=== PATIENT | female | born 1945 | race Two or more races ===

== ENCOUNTER 2017-09-30 20:03 | Emergency (ER) | payer OTHER, MEDICAID ==
[2017-09-30 20:13] VITALS: TEMP 98.2
[2017-09-30] MEDS ORDERED: LORazepam 2 MG/ML INJ IVP ONE (20:42)
--- NOTE | 2017-09-30 20:42 | EDPHY ---
General - History Smoking Status: Never smoked Time Seen by Provider: 09/30/17 20:30 Narrative: CHIEF COMPLAINT: Headache, high blood pressure, "tingling" HISTORY OF PRESENT ILLNESS: Patient complains of headache, feeling that her blood pressure was high and tingling in the extremities. Symptoms have been present for nearly 15 days. The tingling is described in the left foot and in the right knee stump over the past 2 weeks, and then began involving the hands earlier today. She has had a mild headache with this that is around her entire head. It was not sudden onset. It has been waxing and waning over the past 15 days. No neck pain or stiffness. No chest pain. No shortness of breath. No numbness. No unilateral complaints of any kind. Her family at bedside has not witnessed any slurred speech or facial droop. She has had no difficulty ambulating. She feels that this may be related to anxiety but was concerned and wanted to be evaluated due to the possibility of her blood pressure being abnormal. No other associated complaints or modifying factors. Her spouse, son and daughter are at bedside. HPI obtained using the hospital's certified Khmer world language teacher at bedside in patient's room. REVIEW OF SYSTEMS: Ten systems reviewed and are negative unless otherwise noted in the HPI PCP: Dr. Raciel Dillard SPECIALISTS: None PAST MEDICAL HISTORY: Type 2 diabetes, hypertension, anxiety PAST SURGICAL HISTORY: Right leg BKA, cholecystectomy SOCIAL HISTORY: Never smoker. No drug or alcohol use. Lives here independently with her spouse and daughter FAMILY HISTORY: Noncontributory EXAMINATION General Appearance: Alert, no distress, no facial droop. Well-developed well- nourished Head: normocephalic, atraumatic Eyes: Pupils equal and round, no conjunctival pallor or injection. EOMs intact. ENT, Mouth: Mucous membranes moist. Uvula midline. Neck: Normal inspection, supple, non-tender Respiratory: Lungs are clear to auscultation Cardiovascular: Regular rate and rhythm Gastrointestinal: Abdomen is soft and nontender Back: non-tender, no bony abnormalities Neurological: No facial droop. GCS 15. Cranial nerves 2-12 grossly intact. A &O, nonfocal, no pronator drift. Normal [id number]. NIH stroke scale 0. Skin: Warm and dry, no rash. No petechiae or purpura Extremities: Nontender, no pedal edema. Right leg status post BKA with well- appearing stump. Symmetric range of motion in the remaining joints. Psychiatric: Mood and affect normal DIFFERENTIAL DIAGNOSES: Including but not limited to TIA, CVA, anxiety, diabetes, peripheral neuropathy , paresthesia MDM: 8:40 p.m. Complaints of headache and tingling of the arms and legs over the past 15 days with 1 day of hand involvement. The patient's neuro exam is completely within normal limits. There is no signs of stroke. I do feel this is more likely related to diabetes and/or anxiety and less so from cardiac or neuro changes. She is well-appearing and her vital signs are within normal limits with very mild hypertension at check-in. Heart rate was 108. I have ordered CT scan of the head, laboratory studies and full cardiac workup although my suspicion is low for this type of etiology. She also agrees that there may be an anxiety component to this as well. 9:00 p.m. I have discussed with Dr. Howard. She will evaluate the patient as well. 9:35 p.m. Notified by radiologist Dr. Nathanael Pena. There are no acute findings. There is extensive microvascular changes. CXR has been read as borderline cardiac enlargement. 9:45 p.m. Patient re-evaluated. She is resting comfortably. Updated on the negative laboratory studies, negative chest x-ray and and nonacute appearance of the CT scan of the head. 10:40 p.m. Patient evaluated by Dr. Howard. She is in agreement with the management thus far. She reports that the patient is feeling significantly better. She feels the patient is stable for discharge home. I do agree with this. I do not suspect CVA, TIA or cardiac involvement. We discussed follow up with primary care physician for further management of the blood pressure and blood glucose levels. We discussed ED precautions and I have answered all her questions. She is discharged home stable condition. EKG interpretation: Dr. Howard SUPERVISION: Patient was evaluated and examined in conjunction with my secondary supervising physician as documented. We have both examined the patient. (Philip Claudio) PHYSICIAN DOCUMENTATION: This is a 72-year-old female with hypertension who presents with slow onset of headache as well as paresthesias of her arms. Paresthesias have been present for several days now. She has no neurologic deficit. She was evaluated with CT scan of her head which was unremarkable for any acute changes. Her labs and studies are otherwise unremarkable. I do not feel that she is suffering from a subarachnoid hemorrhage, CVA, TIA. I am comfortable discharging her home. I agree with the assessment as above. The patient was evaluated and managed by the Physician Ticket Worker. My co- signature indicates that I have reviewed this chart and I agree with the findings and plan of care as documented. I am the secondary supervising physician. (Perla Howard) - Diagnostics Imaging Results: Imaging Impressions Chest X-Ray 09/30/17 20:43 Impression: Borderline cardiac enlargement and mild peribronchial cuffing. Head CT 09/30/17 20:44 Impression: Elderly brain with atrophy and probable white matter small vessel disease. Nothing acute is identified. Results called and discussed with Philip Claudio the before meals on 09/30/2017 at 21:35 - Objective Vital Signs: Initial Vital Signs Temperature (C) 36.8 C 09/30/17 20:07 Heart Rate 108 H 09/30/17 20:07 Respiratory Rate 18 09/30/17 20:07 Blood Pressure 150/67 H 09/30/17 20:07 O2 Sat (%) 96 09/30/17 20:07 O2 Delivery Mode Room Air O2 (L/minute) 2 Allergies/Adverse Reactions: No Known Allergies Allergy (Verified 10/06/12 21:20) Home Medications: Medication Instructions Recorded metFORMIN HCL [Glucophage 1000 mg] 1,000 mg PO BIDMEAL 10/06/12 Lisinopril 04/20/16 Meclizine HCl 25 mg PO TID PRN #10 tablet 04/20/16 Levemir 09/30/17 Laboratory Results: Laboratory Results 09/30/17 20:54 09/30/17 20:54 09/30/17 09/30/17 20:54 20:54 WBC 8.84 10^3/uL 10^3/uL (3.80-9.50) RBC 3.89 10^6/uL L 10^6/uL (4.18-5.33) Hgb 11.7 g/dL L g/dL (12.6-16.3) Hct 34.2 % L % (38.0-47.0) MCV 87.9 fL fL (81.5-99.8) MCH 30.1 pg pg (27.9-34.1) MCHC 34.2 g/dL g/dL (32.4-36.7) RDW 11.8 % % (11.5-15.2) Plt Count 360 10^3/uL 10^3/uL (150-400) MPV 9.2 fL fL (8.7-11.7) Neut % (Auto) 64.4 % % (39.3-74.2) Lymph % (Auto) 26.7 % % (15.0-45.0) Young % (Auto) 6.4 % % (4.5-13.0) Eos % (Auto) 0.6 % % (0.6-7.6) Baso % (Auto) 0.7 % % (0.3-1.7) Nucleat RBC Rel Count 0.0 % % (0.0-0.2) Absolute Neuts (auto) 5.69 10^3/uL 10^3/uL (1.70-6.50) Absolute Lymphs (auto) 2.36 10^3/uL 10^3/uL (1.00-3.00) Absolute Monos (auto) 0.57 10^3/uL 10^3/uL (0.30-0.80) Absolute Eos (auto) 0.05 10^3/uL 10^3/uL (0.03-0.40) Absolute Basos (auto) 0.06 10^3/uL 10^3/uL (0.02-0.10) Absolute Nucleated RBC 0.00 10^3/uL 10^3/uL (0-0.01) Immature Gran % 1.2 % H % (0.0-1.1) Immature Gran # 0.11 10^3/uL H 10^3/uL (0.00-0.10) Sodium 138 mEq/L mEq/L (135-145) Potassium 3.8 mEq/L mEq/L (3.5-5.2) Chloride 96 mEq/L L mEq/L (97-110) Carbon Dioxide 25 mEq/l mEq/l (22-31) Anion Gap 17 mEq/L H mEq/L (8-16) BUN 20 mg/dL mg/dL (7-23) Creatinine 0.7 mg/dL mg/dL (0.6-1.0) Estimated GFR > 60 Glucose 201 mg/dL H mg/dL (70-100) Calcium 9.9 mg/dL mg/dL (8.5-10.4) Total Bilirubin 0.2 mg/dL mg/dL (0.1-1.4) Conjugated Bilirubin 0.1 mg/dL mg/dL (0.0-0.5) Unconjugated Bilirubin 0.1 mg/dL mg/dL (0.0-1.1) AST 22 IU/L IU/L (14-46) ALT 40 IU/L IU/L (9-52) Alkaline Phosphatase 115 IU/L IU/L (38-126) Troponin I < 0.012 ng/mL ng/mL (0.000-0.034) Total Protein 8.1 g/dL g/dL (6.3-8.2) Albumin 4.4 g/dL g/dL (3.5-5.0) Lipase 226 IU/L IU/L (23-300) Medications Given: Discontinued Medications Lorazepam (Ativan Injection) 0.5 mg IVP EDNOW ONE Stop: 09/30/17 20:43 Last Admin: 09/30/17 20:58 Dose: 0.5 mg Departure - Departure Disposition: Home, Routine, Self-Care Clinical Impression: Anxiety Headache Qualifiers: Headache type: unspecified Headache chronicity pattern: acute headache Intractability: not intractable Qualified Code(s): R51 - Headache Hypertension Qualifiers: Hypertension type: unspecified Qualified Code(s): I10 - Essential (primary) hypertension Diabetes mellitus with hyperglycemia Qualifiers: Diabetes mellitus type: type 2 Diabetes mellitus custodial insulin use: unspecified hand leather trimmer insulin use status Qualified Code(s): E11.65 - Type 2 diabetes mellitus with hyperglycemia Condition: Good Instructions: Acute Headache (DC), DASH Eating Plan (ED), Anxiolysis in Adults (ED), Hypertension in the Older Adult (ED) Additional Instructions: 1. Continue your previous medications 2. Follow up with primary care physician on Monday or Monday for repeat evaluation 3. ED precautions as discussed 1. Continuar con celso medicamentos anteriores 2. Varsha darlene wilfredo de seguimiento con lara medico de atencion primaria el o el yan para darlene evaluaction de nuevo 3. Precauciones de emergencias becky se hablo. Referrals: Raciel Dillard MD [Primary Care Provider] - As per Instructions Print Language: Khmer
--- NOTE | 2017-09-30 20:56 | CPEKG ---
Heart Rate: 95 RR Interval: 632 P-R Interval: 136 QRSD Interval: 92 QT Interval: 384 QTC Interval: 483 P [place]: 53 QRS [place]: -16 T Wave [place]: 41 EKG Severity - ABNORMAL ECG - EKG Impression: SINUS RHYTHM EKG Impression: LEFT VENTRICULAR HYPERTROPHY Electronically Signed By: Perla Howard 01-Oct-2017 08:23:27
[2017-09-30 21:02] LABS: PLATELET COUNT 360 10^3/uL (150-400)
[2017-09-30 22:52] VITALS: BP 128/77; PULSE 90; RESP 16; O2SAT 94
== END 2017-09-30 22:49 | disposition home or self-care (01) ==
DX: R51 Headache (principal); I10 Essential (primary) hypertension; E11.65 Type 2 diabetes mellitus with hyperglycemia; F41.9 Anxiety disorder, unspecified; Z79.84 Long term (current) use of oral hypoglycemic drugs
CPT/HCPCS: 70450; 71045; 93005; 96374; 99285; J2060

== ENCOUNTER → 2018-12-28 | Outpatient (CLI) | payer OTHER, MEDICAID | LOC: BHFA 10:00 | PROVIDERS: ATTEND Internal Medicine Interventional Cardiology | DX: H34.211 Partial retinal artery occlusion, right eye (principal) ==